=== PATIENT | male | born 1980 | race American Indian/Alaskan Native ===

== ENCOUNTER 2021-04-28 04:07 | Emergency (ER) | payer OTHER ==
[2021-04-28 04:11] VITALS: BP 149/94
--- NOTE | 2021-04-28 05:01 | XRay Report ---
XR finger(s) 2+V RT INDICATION / CLINICAL INFORMATION: pain nad swelling. COMPARISON: None available. FINDINGS: There is an acute oblique fracture of the right index finger proximal phalanx with one half shaft wid th ulnar displacement of the distal fracture fragment. No additional fracture. No joint subluxation. IMPRESSION: Acute displaced fracture of the right index finger proximal phalanx. Signer Name: Luca Deutsch MD Signed: 04/28/2021 4:57 AM Workstation Name: [id number]
--- NOTE | 2021-04-28 05:30 | Emergency Department Report ---
ED Upper Extremity Inj HPI - General Chief Complaint: Extremity Injury, Upper Stated Complaint: BROKEN FINGER Time Seen by Provider: 04/28/21 04:21 Source: patient Mode of arrival: Ambulatory Limitations: No Limitations - History of Present Illness Initial Comments: 40-year-old male presents to the emergency department for evaluation of right index finger pain and swelling. He states that earlier tonight he was pulling on a heavy object and felt something pop in his finger. He states that he developed pain and swelling later, so he decided to come in for evaluation. Complaint: Injury to:: right, finger -: Sudden Other Extremity Injury: Fingers: Right Other Injuries: none Handedness: right Place: home Severity scale (0 -10): 4 Worsens With: movement of extremity Context: other (Pulling a heavy object) Associated Symptoms: denies other symptoms - Related Data Previous Rx's Medication Instructions Recorded Last Taken Type Acetaminophen/Codeine [Tylenol 1 tab PO Q6H PRN #15 tab 04/28/21 Unknown Rx /Codeine # 3 tab] Allergies Allergy/AdvReac Type Severity Reaction Status Date / Time No Known Allergies Allergy Unverified 04/28/21 04:11 ED Review of Systems ROS: Stated complaint: BROKEN FINGER Other details as noted in HPI Comment: All other systems reviewed and negative Constitutional: no symptoms reported Eyes: denies: eye pain, eye discharge ENT: denies: ear pain Respiratory: denies: cough, shortness of breath Cardiovascular: denies: chest pain, dyspnea on exertion, edema, syncope Endocrine: no symptoms reported Gastrointestinal: denies: abdominal pain, nausea, vomiting, hematemesis, hematochezia Genitourinary: denies: urgency, dysuria Musculoskeletal: denies: back pain Skin: denies: rash, lesions Neurological: denies: headache, weakness Psychiatric: denies: anxiety Hematological/Lymphatic: denies: easy bleeding, easy bruising ED Past Medical Hx - Past Medical History Previous Medical History?: No - Surgical History Past Surgical History?: No - Medications Home Medications: Home Medications Medication Instructions Recorded Confirmed Last Taken Type Acetaminophen/Codeine [Tylenol 1 tab PO Q6H PRN #15 tab 04/28/21 Unknown Rx /Codeine # 3 tab] ED Physical Exam - General Limitations: No Limitations General appearance: alert, in no apparent distress - Head Head exam: Present: atraumatic, normocephalic - Eye Eye exam: Present: normal appearance. Absent: conjunctival injection - Neck Neck exam: Present: normal inspection - Respiratory Respiratory exam: Absent: respiratory distress - Cardiovascular Cardiovascular Exam: Present: regular rate - GI/Abdominal GI/Abdominal exam: Absent: distended - Expanded Upper Extremity Exam Right Elbow exam: Present: normal inspection Forearm Wrist exam: Present: normal inspection Hand Wrist exam: Present: tenderness, swelling. Absent: erythema Hand L/R Back: 1 - Finger noted to have swelling tenderness and decreased range of motion. Neuro motor exam: Present: wrist extension intact, thumb opposition intact, thumb IP flexion intact Neurosensory exam: Present: radial nerve intact Vascular: Present: normal capillary refill, radial pulse. Absent: vascular compromise, pulse deficit radial art - Back Exam Back exam: Present: normal inspection - Neurological Exam Neurological exam: Present: alert, oriented X3 - Psychiatric Psychiatric exam: Present: normal affect, normal mood - Skin Skin exam: Present: warm, dry, intact, normal color ED Course Vital Signs 04/28/21 04:10 Temperature 98.3 F Pulse Rate 90 Respiratory 18 Rate Blood Pressure 149/94 O2 Sat by Pulse 97 Oximetry - Orthopedic Splinting/Casting Injury #1 Side: right Upper Extremity Injury Location: finger Upper Extremity Immobilizer: finger (other) (Aluminum finger splint) Additional Comments: Finger pulled straight then aluminum finger splint placed and tightened patient tolerated well noted to have good alignment. Circulation and sensation intact. ED Medical Decision Making - Radiology Data Radiology results: report reviewed, image reviewed Right index finger x-ray IMPRESSION: Acute displaced fracture of the right index finger proximal phalanx. - Medical Decision Making 40-year-old male presents to the emergency department for evaluation of right index finger pain and swelling. He states that earlier tonight he was pulling on a heavy object and felt something pop in his finger. He states that he developed pain and swelling later, so he decided to come in for evaluation. Patient noted to have acute displaced fracture of the proximal phalanx of the right index finger. Finger was pulled straight for realignment then aluminum finger splint placed. Patient tolerated well. Circulation and sensation intact. Patient was sent home with prescription for Tylenol 3 to use as needed for pain and advised to follow-up with hand surgeon for further evaluation. Patient verbalized understanding of and agreement with plan of care. Critical care attestation.: If time is entered above; I have spent that time in minutes in the direct care of this critically ill patient, excluding procedure time. ED Disposition Clinical Impression: Finger fracture, right Qualifiers: Encounter type: initial encounter Finger: index finger Fracture type: closed Phalanx: proximal Fracture alignment: displaced Qualified Code(s): S62.610A - Displaced fracture of proximal phalanx of right index finger, initial encounter for closed fracture Disposition: HOME / SELF CARE / HOMELESS Is pt being admited?: No Does the pt Need Aspirin: No Condition: Stable Instructions: Finger Fracture, Adult, [id number], Cast or Splint Care, Adult, [id number] Additional Instructions: Take medications as prescribed. Follow-up with hand surgeon for further evaluation. Prescriptions: Acetaminophen/Codeine [Tylenol /Codeine # 3 tab] 1 tab PO Q6H PRN #15 tab PRN Reason: Pain , Severe (7-10) Referrals: Liza Nickerson [Other] - 3-5 Days Time of Disposition: 05:30
== END 2021-04-28 06:01 | disposition home or self-care (01) ==
LOC: ED 04:07
DX: S62.600A Fracture of unspecified phalanx of right index finger, initial encounter for closed fracture (principal); X50.9XXA Other and unspecified overexertion or strenuous movements or postures, initial encounter; Y93.89 Activity, other specified; Y92.89 Other specified places as the place of occurrence of the external cause; Y99.8 Other external cause status
CPT/HCPCS: 99283